=== PATIENT | male | born 1995 | race Caucasian/White ===

== ENCOUNTER 2016-04-04 08:07 | Emergency (ER) | payer BC, OTHER ==
[~2016-04-04] VITALS: Ht 170.2 cm; Wt 70.0 kg
[~2016-04-04 08:07] MED LIST: Z.0.NO CURRENT MEDS
[2016-04-04 08:09] VITALS: BP 143/86; PULSE 105; RESP 14; TEMP 99.8; O2SAT 98
[2016-04-04] MEDS ORDERED: PENI500T PO (08:32)
--- NOTE | 2016-04-04 09:13 | PD ---
HPI Chief Complaint: ENT Complaint Time Seen by Provider: 09:09 Travel History International Travel<30 days: No Contact w/Intl Traveler<30days: No Traveled to known affect area: No History of Present Illness HPI 20-year-old male presents to the emergency Department with complaint of sore throat, nasal congestion, cough, sinus headache since Sunday. He was seen in urgent care on Sunday and was told he had tonsillitis/pharyngitis and was given penicillin. He says he did not swab him for strep. He has had no improvement in symptoms and worsening cough since. He has been taking the penicillin as prescribed. Reports MAXIMUM TEMPERATURE 102.0. Denies nausea, vomiting. Denies shortness of breath, wheezing, chest pain, abdominal pain. Denies change in urine or stool. Reports occasional hemoptysis; patient showed me a picture. Denies epistaxis. Denies history of DVT/PE. Denies recent travel, trauma, surgery, hospitalization. Denies leg edema. Has not taken any other medications or tried any other treatments, other than the penicillin, to alleviate symptoms. Reports history of asthma as a child. Denies allergies. Does not have primary care provider. No other modifying factors or associated signs and symptoms. PFSH Past Medical History Asthma: Yes (childhood) Developmental Delay: No Diminished Hearing: No Immunizations Current: Yes Past Surgical History Tonsillectomy: Yes (AND ADENIDS) Tympanostomy Tube: Yes (X3) Social History Alcohol Use: No Tobacco Use: No Substance Use: No Allergies-Medications (Allergen,Severity, Reaction): Coded Allergies: No Known Allergies (Verified , 04/04/16) Reported Meds & Prescriptions Reported Meds & Active Scripts Active Nasonex Nasal [place] (Mometasone Furoate) 50 Mcg/Act Naspr 2 [place] EACH NARE DAILY PRN Ibuprofen 800 Mg Tab 800 Mg PO Q6HR PRN Tessalon Perles (Benzonatate) 100 Mg Cap 100 Mg PO TID PRN Deltasone (Prednisone) 20 Mg Tab 40 Mg PO DAILY 4 Days start 04/05/2016 Proair Hfa 8.5 GM Inh (Albuterol Sulfate) 90 Mcg/Act Aer 2 Puff INH Q4-6H PRN 108 mcg/actuation Reported Penicillin V Potassium 500 Mg Tab 500 Mg PO Q6H Review of Systems Except as stated in HPI: all other systems reviewed are Neg Physical Exam Narrative GENERAL: Well-nourished, well-developed male patient, in no acute distress; low-grade fever 99.8. Nontoxic-appearing SKIN: Warm and dry. No rash. HEAD: Atraumatic. Normocephalic. EYES: Pupils equal and round at 3 mm with brisk reaction. No scleral icterus. No injection or drainage. PERRLA. ENT: Mucosa pink and moist. No erythema or exudates. No uvular edema. No uvular , palatal, or tonsillar deviation. Airway patent. EARS: Bilateral pinnae and external canals appear within normal limits. Bilateral tympanic membranes without erythema, dullness or perforation. NECK: Trachea midline. No lymphadenopathy. CARDIOVASCULAR: Regular rate and rhythm. No murmur appreciated. RESPIRATORY: No accessory muscle use. Clear to auscultation; decreased to bilateral bases. Breath sounds equal bilaterally. Frequent cough during physical exam. GASTROINTESTINAL: Abdomen soft, non-tender, nondistended. Hepatic and splenic margins not palpable. Bowel sounds are active 4 quadrants. MUSCULOSKELETAL: No obvious deformities. No clubbing. No cyanosis. No edema. NEUROLOGICAL: Awake and alert. Oriented 3. No obvious cranial nerve deficits. Motor grossly within normal limits. Normal speech. Moves all extremities. 5/5 strength to all extremities. PSYCHIATRIC: Appropriate mood and affect; insight and judgment normal. Data Data Last Documented VS Vital Signs Date Time Temp Pulse Resp B/P Pulse Ox O2 Delivery O2 Flow Rate FiO2 04/04/16 09:51 99 21 04/04/16 09:23 97 16 Room Air 04/04/16 08:09 99.8 143/86 Orders Influenzae A/B Antigen (04/04/16 09:01) Group A Rapid Strep Screen (04/04/16 09:01) Prednisone (Deltasone) (04/04/16 09:15) Albuterol Neb (Albuterol Neb) (04/04/16 09:15) Chest, Single Ap (04/04/16 09:01) Strep Culture (Group A) (04/04/16 09:15) [facility] Medical Decision Making Medical Screen Exam Complete: Yes Emergency Medical Condition: Yes Medical Record Reviewed: Yes Differential Diagnosis Influenza, bronchitis, sinusitis, pharyngitis, pneumonia, less likely PE Narrative Course 20-year-old male with cold/flu symptoms since Sunday. She is currently taking penicillin that he was prescribed from urgent care for diagnosis of tonsillitis/ pharyngitis without rapid strep confirmation. Patient has had no change in symptoms with worsening of cough. He is in no acute distress and without retractions or tachypnea. Oxygen saturation is 98% on room air. Lungs are with decreased lung sounds to bilateral bases. Patient reports hemoptysis. Recheck on physical exam is approximately 90 bpm. Using the well's criteria for pulmonary embolism the patient scores of 1 point and is categorized in the Low risk group: 1.3% chance of PE in an ED population; Another study assigned scores = 4 as PE Unlikely and had a 3% incidence of PE. I do not feel further testing for PE is necessary at this time. Rapid strep, influenza ordered. Albuterol nebulizer and Deltasone ordered. Chest x-ray ordered. 0940: Chest x-ray with no acute findings. 0946: Influenza and rapid strep negative. Suspecting acute bronchitis and viral illness. I scuffed the patient with Dr. Treviño, my attending physician, she agrees with my treatment plan. Pro-air inhaler, Deltasone prescribed for home. Instructed patient to continue penicillin as prescribed. Discussed viral illness and symptom management. Patient verbalizes understanding and agreement with treatment plan. Patient is medically cleared and stable for discharge. Discussed reasons to return to the emergency department. Instructed patient to follow up with primary care provider. Patient agrees with treatment plan. The patients vital signs are stable and the patient is stable for outpatient follow-up and treatment. Patient discharged home, stable and in no acute distress. Diagnosis Primary Impression: Viral illness Additional Impression: Bronchitis Referrals: Primary Care Physician Patient Instructions: Acute Bronchitis (ED), Cold Symptoms (ED), General Instructions, Safe Use of Cough and Cold Medicines (ED) Departure Forms: Tests/Procedures, Work Release Enter return to work date: Apr 06, 2016 Additional Instructions: Use Albuterol inhaler as prescribed Take oral steroids as prescribed and complete full course Use Tessalon Perles as prescribed to decrease coughing spasms [id number] decongestants or antihistamines as directed and as needed for symptom management Your cough can last 4-6 weeks Drink plenty of fluids to prevent dehydration Use hot air humidifier to decrease cough exacerbation Turn off ceiling fans and sleep with head of bed elevated Avoid triggers such as second hand smoke, dust, known allergens Follow-up with your primary care provider Return to the emergency department immediately with worsening of symptoms Med/Other Pt SpecificInfo: Prescription(s) given ( ) Scripts Mometasone Nasal [place] (Nasonex Nasal [place])50 Mcg/Act Naspr2 [place] EACH NARE DAILY PRN (NASAL CONGESTION) #1 BOTTLE Ref 0 Prov:Kelly ParrishP 04/04/16 Ibuprofen 800 Mg [id number] Mg PO Q6HR PRN (PAIN) #30 TAB Ref 0 Prov:Kelly ParrishP 04/04/16 Benzonatate (Tessalon Perles)100 Mg [id number] Mg PO TID PRN (COUGH) #20 CAP Ref 0 Prov:Kelly Parrish 04/04/16 Prednisone (Deltasone)20 Mg Tab40 Mg PO DAILY 4 Days Ref 0 start 04/05/2016 Prov:Kelly ParrishP 04/04/16 Albuterol 8.5 GM Inh (Proair Hfa 8.5 GM Inh)90 Mcg/Act Aer2 Puff INH Q4-6H PRN ( SOB/WHEEZING) #1 INHALER Ref 0 108 mcg/actuation Prov:Kelly ParrishP 04/04/16 Disposition: 01 DISCHARGE HOME Condition: Stable Kelly Parrish Apr 04, 2016 09:13
[2016-04-04] MEDS ORDERED: RESP: ALBUTEROL 2.5 MG/3 ML NEB (SCH) INH ONE (09:15)
[2016-04-04] MEDS ORDERED: predniSONE 20 MG TAB PO ONE (09:15)
[2016-04-04 09:23] VITALS: PULSE 97; RESP 16; O2SAT 99
--- NOTE | 2016-04-04 09:32 | RADRPT ---
EXAM DATE/TIME: 04/04/2016 09:03 [place] COMPARISON: No previous studies available for comparison. INDICATIONS : Cough. MEDICAL HISTORY : None. SURGICAL HISTORY : None. ENCOUNTER: Initial ACUITY: 4 - 6 days PAIN SCORE: 0/10 LOCATION: Bilateral chest FINDINGS: A single view of the chest demonstrates the lungs to be symmetrically aerated without evidence of mas s, infiltrate or effusion. The cardiomediastinal contours are unremarkable. Osseous structures are intact. CONCLUSION: No acute disease. Costa Rivas MD on April 04, 2016 at 9:30 Board Certified Radiologist. This report was verified electronically.
[2016-04-04 09:51] VITALS: O2SAT 99
[2016-04-04] MEDS ORDERED: MOME17I EACH NARE (10:15)
[2016-04-04] MEDS ORDERED: IBUP800T23 PO (10:15)
[2016-04-04] MEDS ORDERED: PRED-503 PO (10:15)
[2016-04-04] MEDS ORDERED: BENZ100 PO (10:15)
[2016-04-04] MEDS ORDERED: ALBUAER3 INH (10:15)
== END 2016-04-04 10:28 | disposition home or self-care (01) ==
LOC: NEPB 08:07
DX: B34.9 Viral infection, unspecified (principal); J40 Bronchitis, not specified as acute or chronic; R05 Cough; R51 Headache
CPT/HCPCS: 71010; 87081; 87804; 87880; 94664; 99283; J7512; J7613

== ENCOUNTER 2017-07-01 21:01 | Emergency (ER) | payer SELFPAY ==
[~2017-07-01 21:01] MED LIST changes: +ALBUAER3 INH; +BENZ100 PO; +IBUP1TAB7 PO; +MOME17I EACH NARE; +PENI500T PO; +PRED-503 PO; -Z.0.NO CURRENT MEDS
[2017-07-01 21:09] VITALS: BP 149/72; PULSE 109; RESP 18; TEMP 101; O2SAT 98
--- NOTE | 2017-07-01 21:34 | PD ---
HPI Chief Complaint: Cold / Flu Symptoms Time Seen by Provider: 21:23 Travel History International Travel<30 days: No Contact w/Intl Traveler<30days: No Traveled to known affect area: No History of Present Illness HPI 22-year-old white male presents emergency department for evaluation of fever. The patient has been sick for the past 4 days with intermittent fever. He states now in the last 2 days he developed sores inside of his mouth. His fever has resolved. He had some nausea initially had some diarrhea that did resolve. Patient denies any headache, earache, cough, congestion, nausea abdominal pain, urinary symptoms. History Past Medical Histgory Medical History: Denies Significant Hx Tetanus Vaccination: > 5 Years Social History Alcohol Use: Yes (rare) Allergies-Medications (Allergen,Severity, Reaction): Coded Allergies: No Known Allergies (Verified Adverse Reaction, Unknown, 07/01/17) Reported Meds & Prescriptions Reported Meds & Active Scripts Active Review of Systems Except as stated in HPI: all other systems reviewed are Neg Physical Exam Narrative GENERAL: Well-developed, well-nourished in no acute distress. Nontoxic appearing. HEAD: Normocephalic, atraumatic. EYES: Pupils equal round and reactive. Extraocular motions intact. No scleral icterus. No injection or drainage. ENT: TMs clear without erythema. The external auditory canals clear. Nose: clear . Posterior pharynx is erythematous with vesicular ulcerations to the buccal mucosa of the anterior lower lip. Membranes are positive moist. No tonsillar edema or exudate. Uvula midline. Airway patent. NECK: Trachea midline.Supple, nontender, moves head freely. No central bony tenderness or spasm. Cervical adenopathy. CARDIOVASCULAR: Regular rate and rhythm without murmurs, gallops, or rubs. RESPIRATORY: Clear to auscultation. Breath sounds equal bilaterally. No wheezes , rales, or rhonchi. GASTROINTESTINAL: Abdomen soft, non-tender, nondistended. No hepato-splenomegaly , or palpable masses. No guarding. EXTREMITIES: No clubbing, cyanosis, or edema. No joint tenderness, effusion, or edema noted. BACK: Nontender without deformity or crepitance. No flank tenderness. Data Data Last Documented VS Vital Signs Date Time Temp Pulse Resp B/P (MAP) Pulse Ox O2 Delivery O2 Flow Rate FiO2 5/20/18 21:09 101.0 109 18 149/72 97 98 MDM Medical Screen Exam Complete: Yes Emergency Medical Condition: No Differential Diagnosis MDM: High Differential diagnoses: Strep throat, viral pharyngitis, stomatitis, herpangina Narrative Course A medical screening exam was performed: At the time of evaluation the presenting medical condition was determined not to be of an emergent nature. The patient was given the option of receiving additional care, but declined. Patient was given options for additional community resources from which to obtain care. The Patient Has Been advised to seek medical attention for their presenting complaint. The patient has been advised to return to the ER at any time if an emergent condition develops. Primary Impression: Encounter for medical screening examination Condition: Stable Jose M Gabriel July 01, 2017 21:34
== END 2017-07-01 22:00 | disposition left against medical advice (07) ==
LOC: NEPD 21:01
DX: R50.9 Fever, unspecified (principal); K13.79 Other lesions of oral mucosa
CPT/HCPCS: 99281